=== PATIENT | female | born 1955 | race Caucasian/White ===

== ENCOUNTER 2018-05-07 13:07 | Inpatient (IN) | payer MEDICARE, OTHER ==
[~2018-05-07] VITALS: Ht 157.5 cm; Wt 69.4 kg
[2018-05-07] MEDS ORDERED: VENL150C58 PO (13:30)
[2018-05-07] MEDS ORDERED: TRAZ-182 PO (13:30)
[2018-05-07 14:04] LABS: BASOPHILS # (AUTO) 0.2 K/uL (0.0-8.0); BASOPHILS % (AUTO) 2.3 % (0.0-2.0); EOSINOPHILS # (AUTO) 0.2 K/uL (0.0-0.7); EOSINOPHILS % (AUTO) 3.2 % (0.0-7.0); HEMATOCRIT 42.8 % (31.2-41.9); HEMOGLOBIN 14.6 g/dL (10.9-14.3); LYMPHOCYTES # (AUTO) 1.4 K/uL (20.0-40.0); LYMPHOCYTES % (AUTO) 19.5 % (20.5-51.5); MEAN CORPUSCULAR HGB CONC 34 g/dL (32.3-35.6); MONOCYTES # (AUTO) 0.4 K/uL (2.0-10.0); MONOCYTES % (AUTO) 5.8 % (0.0-11.0); NEUTROPHILS # (AUTO) 4.9 K/uL (1.8-8.9); NEUTROPHILS % (AUTO) 69.2 % (38.5-71.5); PLATELET COUNT (AUTO) 177 K/uL (179-408); RED BLOOD CELL COUNT(AUTO) 4.71 MIL/uL (3.63-4.92); WHITE BLOOD COUNT (AUTO) 7.1 K/uL (3.8-11.8)
[2018-05-07 14:15] LABS: ALANINE AMINOTRANSFERASE 52 U/L (14-59); ALKALINE PHOSPHATASE 85 U/L (50-136); ASPARTATE AMINOTRANSFERASE 32 U/L (15-37); BILIRUBIN,DIRECT 0.2 mg/dL (0.0-0.2); BILIRUBIN,TOTAL 0.7 mg/dL (0.2-1.0); CARBON DIOXIDE 25 mmol/L (21-32); CHLORIDE 104 mmol/L (98-107); CREATININE 0.9 mg/dL (0.6-1.3); GLUCOSE 212 mg/dL (74-106); POTASSIUM 3.8 mmol/L (3.5-5.1); TOTAL PROTEIN, SERUM 7.7 g/dL (6.4-8.2)
[2018-05-07 14:17] LABS: ETHANOL < 3 MG/DL (0-0)
[2018-05-07 14:28] LABS: UREA NITROGEN, BLOOD 26 mg/dL (7-18)
[2018-05-07 14:29] LABS: ACETAMINOPHEN < 2.0 ug/mL (10-30)
[2018-05-07] MEDS ORDERED: MAGNESIUM HYDROXIDE 30 ML LIQUID UDC PO PRN (16:45)
[2018-05-07] MEDS ORDERED: ACETAMINOPHEN 325 MG TABLET PO PRN (16:45)
[2018-05-07] MEDS ORDERED: MAG HYDROX/AL HYDROX/SIMETH 30 ML LIQUID UDC PO PRN (16:45)
[2018-05-07 17:59] VITALS: BP 147/87
[2018-05-07 20:00] VITALS: BP 116/71
[2018-05-07] MEDS: ARIPIPRAZOLE 5 MG TABLET PO SCH (20:21)
[2018-05-07] MEDS: TRAZODONE 50 MG TABLET PO SCH (20:21)
[2018-05-08 07:30] VITALS: BP 136/76
[2018-05-08] MEDS: VENLAFAXINE XR 150 MG CAP.SR.24H PO SCH (08:18)
[2018-05-08 15:27] VITALS: BP 127/74
[2018-05-08 19:30] VITALS: BP 131/68
[2018-05-08] MEDS: ARIPIPRAZOLE 5 MG TABLET PO SCH (20:10)
[2018-05-08] MEDS: TRAZODONE 50 MG TABLET PO SCH (20:10)
[2018-05-09] MEDS: TEMAZEPAM 7.5 MG CAPSULE PO PRN ×2 (01:46→21:45)
[2018-05-09 07:30] VITALS: BP 126/52
[2018-05-09 07:38] LABS: BASOPHILS # (AUTO) 0.1 K/uL (0.0-8.0); BASOPHILS % (AUTO) 2.1 % (0.0-2.0); EOSINOPHILS # (AUTO) 0.3 K/uL (0.0-0.7); EOSINOPHILS % (AUTO) 5.8 % (0.0-7.0); HEMATOCRIT 41.6 % (31.2-41.9); LYMPHOCYTES % (AUTO) 22.8 % (20.5-51.5); MEAN CORPUSCULAR HEMOGLOBIN 29.9 uug (24.7-32.8); MEAN CORPUSCULAR HGB CONC 34 g/dL (32.3-35.6); MEAN CORPUSCULAR VOLUME 88.8 fL (75.5-95.3); MONOCYTES # (AUTO) 0.3 K/uL (2.0-10.0); MONOCYTES % (AUTO) 7.6 % (0.0-11.0); NEUTROPHILS # (AUTO) 2.8 K/uL (1.8-8.9); NEUTROPHILS % (AUTO) 61.7 % (38.5-71.5); PLATELET COUNT (AUTO) 143 K/uL (179-408); RED BLOOD CELL COUNT(AUTO) 4.68 MIL/uL (3.63-4.92); WHITE BLOOD COUNT (AUTO) 4.5 K/uL (3.8-11.8)
[2018-05-09 07:54] LABS: BILIRUBIN,TOTAL 0.9 mg/dL (0.2-1.0); CREATININE 0.8 mg/dL (0.6-1.3); MAGNESIUM 2.2 mg/dL (1.8-2.4); PHOSPHOROUS 3.7 mg/dL (2.5-4.9); POTASSIUM 3.4 mmol/L (3.5-5.1); TOTAL PROTEIN, SERUM 7.3 g/dL (6.4-8.2)
[2018-05-09 08:19] LABS: THYROID STIMULATING HORMONE 2.721 mIU/mL (0.358-3.740)
[2018-05-09] MEDS: VENLAFAXINE XR 150 MG CAP.SR.24H PO SCH (08:58)
[2018-05-09] MEDS ORDERED: POTASSIUM CHLORIDE 20 MEQ TAB.PRT.SR PO ONE (11:30)
[2018-05-09 16:58] VITALS: BP 146/63
[2018-05-09] MEDS: TRAZODONE 50 MG TABLET PO SCH (20:00)
[2018-05-09] MEDS: ARIPIPRAZOLE 5 MG TABLET PO SCH (20:00)
[2018-05-09 20:19] VITALS: BP 120/86
[2018-05-10 07:30] VITALS: BP 113/65
[2018-05-10] MEDS: VENLAFAXINE XR 150 MG CAP.SR.24H PO SCH (08:28)
[2018-05-10 16:56] VITALS: BP 140/58
[2018-05-10] MEDS: LORAZEPAM 0.5 MG TABLET PO PRN (19:50)
[2018-05-10 20:00] VITALS: BP 128/74
[2018-05-10] MEDS: ARIPIPRAZOLE 5 MG TABLET PO SCH ×2 (21:00→21:45)
[2018-05-10] MEDS: TRAZODONE 50 MG TABLET PO SCH ×2 (21:00→21:45)
[2018-05-11 07:30] VITALS: BP 138/74
[2018-05-11] MEDS: VENLAFAXINE XR 150 MG CAP.SR.24H PO SCH (08:26)
[2018-05-11 15:30] VITALS: BP 121/58
[2018-05-11 20:00] VITALS: BP 119/62
[2018-05-11] MEDS: LORAZEPAM 0.5 MG TABLET PO PRN (20:08)
[2018-05-11] MEDS: ARIPIPRAZOLE 5 MG TABLET PO SCH (21:04)
[2018-05-11] MEDS: TRAZODONE 50 MG TABLET PO SCH (21:04)
[2018-05-12 07:30] VITALS: BP 115/61
[2018-05-12] MEDS: VENLAFAXINE XR 150 MG CAP.SR.24H PO SCH (08:45)
[2018-05-12 16:18] VITALS: BP 120/73
[2018-05-12 16:37] LABS: *BILIRUBIN,URIN NEGATIVE (NEGATIVE); *BLOOD, URINE 1+ (NEGATIVE); *CLARITY,URINE CLOUDY (CLEAR); *COLOR,URINE YELLOW (YELLOW); *KETONES,URINE TRACE (NEGATIVE); *PROTEIN,URINE 1+ (NEGATIVE); LEUKOCYTE ESTERASE ,URINE 1+ (NEGATIVE); NITRITE, URINE POSITIVE (NEGATIVE); PH,URINE 5.5 (5.0-8.0); UGLUCOSE NEGATIVE (NEGATIVE)
[2018-05-12 16:48] LABS: WBC,URINE 80-100 /HPF (0-3)
[2018-05-12 16:49] LABS: BACTERIA,URINE MANY /HPF (NONE SEEN); CALCIUM OXALATE CRYSTALS,UR FEW /HPF (NONE SEEN); MUCUS,URINE MODERATE /LPF (0-FEW); SQUAMOUS EPITHELIAL CELL,UR MODERATE /HPF (NONE SEEN)
[2018-05-12] MEDS: SULFAMETH/TRIMETH 800/160 MG TABLET PO SCH (17:32)
[2018-05-12 20:00] VITALS: BP 123/74
[2018-05-12] MEDS: ARIPIPRAZOLE 5 MG TABLET PO SCH (20:20)
[2018-05-12] MEDS: TRAZODONE 50 MG TABLET PO SCH (20:20)
[2018-05-13 07:12] LABS: BASOPHILS # (AUTO) 0.2 K/uL (0.0-8.0); EOSINOPHILS # (AUTO) 0.3 K/uL (0.0-0.7); EOSINOPHILS % (AUTO) 6.1 % (0.0-7.0); HEMATOCRIT 42.7 % (31.2-41.9); HEMOGLOBIN 14.8 g/dL (10.9-14.3); LYMPHOCYTES # (AUTO) 1.2 K/uL (20.0-40.0); LYMPHOCYTES % (AUTO) 27.2 % (20.5-51.5); MEAN CORPUSCULAR HGB CONC 35 g/dL (32.3-35.6); MEAN CORPUSCULAR VOLUME 89.3 fL (75.5-95.3); MONOCYTES # (AUTO) 0.4 K/uL (2.0-10.0); MONOCYTES % (AUTO) 9.2 % (0.0-11.0); NEUTROPHILS # (AUTO) 2.5 K/uL (1.8-8.9); NEUTROPHILS % (AUTO) 53.5 % (38.5-71.5); PLATELET COUNT (AUTO) 134 K/uL (179-408); RED BLOOD CELL COUNT(AUTO) 4.78 MIL/uL (3.63-4.92); WHITE BLOOD COUNT (AUTO) 4.6 K/uL (3.8-11.8)
[2018-05-13 07:30] VITALS: BP 111/50
[2018-05-13 07:30] LABS: BILIRUBIN,TOTAL 0.7 mg/dL (0.2-1.0); CREATININE 0.9 mg/dL (0.6-1.3); MAGNESIUM 2.1 mg/dL (1.8-2.4); POTASSIUM 3.9 mmol/L (3.5-5.1); TOTAL PROTEIN, SERUM 7.7 g/dL (6.4-8.2)
[2018-05-13] MEDS: SULFAMETH/TRIMETH 800/160 MG TABLET PO SCH ×2 (08:27→20:19)
[2018-05-13] MEDS: VENLAFAXINE XR 150 MG CAP.SR.24H PO SCH (08:27)
[2018-05-13] MEDS: DOCUSATE SODIUM 100 MG CAPSULE PO SCH ×2 (11:47→20:19)
[2018-05-13] MEDS: LORAZEPAM 0.5 MG TABLET PO PRN (12:18)
[2018-05-13 15:26] VITALS: BP 132/68
[2018-05-13 20:00] VITALS: BP 134/60
[2018-05-13] MEDS: TRAZODONE 50 MG TABLET PO SCH (20:19)
[2018-05-13] MEDS: ARIPIPRAZOLE 5 MG TABLET PO SCH (20:20)
[2018-05-14] MEDS: SULFAMETH/TRIMETH 800/160 MG TABLET PO SCH ×2 (08:16→20:38)
[2018-05-14] MEDS: VENLAFAXINE XR 150 MG CAP.SR.24H PO SCH (08:16)
[2018-05-14] MEDS: DOCUSATE SODIUM 100 MG CAPSULE PO SCH ×2 (08:16→20:37)
[2018-05-14 08:30] VITALS: BP 127/71
[2018-05-14] MEDS: LORAZEPAM 0.5 MG TABLET PO PRN (16:24)
[2018-05-14 17:00] VITALS: BP 120/65
[2018-05-14 19:30] VITALS: BP 114/41
[2018-05-14] MEDS: TRAZODONE 50 MG TABLET PO SCH (20:38)
[2018-05-14] MEDS: ARIPIPRAZOLE 5 MG TABLET PO SCH (20:55)
[2018-05-15 07:30] VITALS: BP 94/51
[2018-05-15] MEDS: VENLAFAXINE XR 150 MG CAP.SR.24H PO SCH (08:35)
[2018-05-15] MEDS: SULFAMETH/TRIMETH 800/160 MG TABLET PO SCH ×2 (08:36→20:05)
[2018-05-15] MEDS: LORAZEPAM 0.5 MG TABLET PO PRN ×2 (08:36→16:35)
[2018-05-15] MEDS: DOCUSATE SODIUM 100 MG CAPSULE PO SCH ×2 (08:36→20:05)
[2018-05-15 17:21] VITALS: BP 121/60
[2018-05-15 19:52] VITALS: BP 142/79
[2018-05-15] MEDS: TRAZODONE 50 MG TABLET PO SCH (20:05)
[2018-05-15] MEDS: ARIPIPRAZOLE 5 MG TABLET PO SCH (20:05)
[2018-05-16 07:30] VITALS: BP 92/48
[2018-05-16] MEDS: VENLAFAXINE XR 150 MG CAP.SR.24H PO SCH (09:21)
[2018-05-16] MEDS: DOCUSATE SODIUM 100 MG CAPSULE PO SCH (09:21)
[2018-05-16] MEDS: SULFAMETH/TRIMETH 800/160 MG TABLET PO SCH (09:21)
== END 2018-05-16 13:30 | DRG 885 ==
LOC: ER 13:15 → GPS 16:17
PROVIDERS: ADMIT Psychiatry & Neurology Psychiatry; ATTEND Nurse Practitioner Acute Care
DX: F32.3 Major depressive disorder, single episode, severe with psychotic features (principal); N39.0 Urinary tract infection, site not specified; E44.1 Mild protein-calorie malnutrition; D69.6 Thrombocytopenia, unspecified; E88.09 Other disorders of plasma-protein metabolism, not elsewhere classified; Z87.891 Personal history of nicotine dependence; E87.6 Hypokalemia; F10.11 Alcohol abuse, in remission; G31.84 Mild cognitive impairment of uncertain or unknown etiology; R73.9 Hyperglycemia, unspecified; B96.89 Other specified bacterial agents as the cause of diseases classified elsewhere; Z16.11 Resistance to penicillins; Z68.28 Body mass index [BMI] 28.0-28.9, adult; R79.89 Other specified abnormal findings of blood chemistry; R74.0 Nonspecific elevation of levels of transaminase and lactic acid dehydrogenase [LDH]; F41.9 Anxiety disorder, unspecified
CPT/HCPCS: 36415; 83735; 84100; 84443; 85025; 87077; 87086; A4663; G0480; G0480-TC

== ENCOUNTER 2018-09-24 13:13 | Inpatient (IN) | payer MEDICARE, MEDICAID ==
[~2018-09-24] VITALS: Ht 165.1 cm; Wt 57.6 kg
[2018-09-24] MEDS ORDERED: CRAN3875 PO (14:03)
[2018-09-24] MEDS ORDERED: TRAZ-182 PO (14:03)
[2018-09-24] MEDS ORDERED: ACET325T53 PO (14:03)
[2018-09-24] MEDS ORDERED: LORA-259 PO (14:03)
[2018-09-24] MEDS ORDERED: DOCU-141 PO (14:03)
[2018-09-24] MEDS ORDERED: MAG355OR18 PO (14:03)
[2018-09-24] MEDS ORDERED: ARIP5TAB10 PO (14:03)
[2018-09-24] MEDS ORDERED: VENL150C2 PO (14:03)
[2018-09-24 14:14] LABS: BILIRUBIN,DIRECT 0.3 mg/dL (0.0-0.2); BILIRUBIN,TOTAL 0.8 mg/dL (0.2-1.0); CREATININE 0.7 mg/dL (0.6-1.3); POTASSIUM 3.6 mmol/L (3.5-5.1); TOTAL PROTEIN, SERUM 7.6 g/dL (6.4-8.2)
[2018-09-24 14:15] LABS: MONOCYTES # (AUTO) 0.4 K/uL (2.0-10.0); RED BLOOD CELL COUNT(AUTO) 4.42 MIL/uL (3.63-4.92)
[2018-09-24 14:24] LABS: BASOPHILS # (AUTO) 0.1 K/uL (0.0-8.0); BASOPHILS % (AUTO) 2.1 % (0.0-2.0); EOSINOPHILS # (AUTO) 0.2 K/uL (0.0-0.7); HEMOGLOBIN 13.5 g/dL (10.9-14.3); LYMPHOCYTES # (AUTO) 0.9 K/uL (20.0-40.0); LYMPHOCYTES % (AUTO) 18.9 % (20.5-51.5); MEAN CORPUSCULAR HEMOGLOBIN 30.6 uug (24.7-32.8); MEAN CORPUSCULAR HGB CONC 35 g/dL (32.3-35.6); MEAN CORPUSCULAR VOLUME 88.2 fL (75.5-95.3); MONOCYTES % (AUTO) 8.9 % (0.0-11.0); NEUTROPHILS # (AUTO) 3.4 K/uL (1.8-8.9); NEUTROPHILS % (AUTO) 67.1 % (38.5-71.5); PLATELET COUNT (AUTO) 167 K/uL (179-408)
[2018-09-24] MEDS ORDERED: MAGNESIUM HYDROXIDE 30 ML LIQUID UDC PO PRN (19:00)
[2018-09-24] MEDS ORDERED: MAG HYDROX/AL HYDROX/SIMETH 30 ML LIQUID UDC PO PRN (19:00)
[2018-09-24] MEDS ORDERED: ACETAMINOPHEN 325 MG TABLET PO PRN (19:00)
[2018-09-24] MEDS ORDERED: LORAZEPAM 0.5 MG TABLET PO PRN (19:00)
[2018-09-24] MEDS ORDERED: TEMAZEPAM 7.5 MG CAPSULE PO PRN (19:00)
[2018-09-24 21:29] VITALS: BP 113/58
[2018-09-25 07:30] VITALS: BP 117/49
[2018-09-25 16:00] VITALS: BP 120/63
[2018-09-25 20:00] VITALS: BP 111/69
[2018-09-25] MEDS: ARIPIPRAZOLE 5 MG TABLET PO SCH (20:36)
[2018-09-25] MEDS: TRAZODONE 50 MG TABLET PO SCH (20:37)
[2018-09-26 07:30] VITALS: BP 100/59
[2018-09-26] MEDS: VENLAFAXINE XR 150 MG CAP.SR.24H PO SCH (09:00)
[2018-09-26 16:06] VITALS: BP 111/53
[2018-09-26] MEDS: MUPIROCIN 2% OINT 22 GM TUBE NS SCH (21:00)
[2018-09-26] MEDS: ARIPIPRAZOLE 5 MG TABLET PO SCH (21:00)
[2018-09-26] MEDS: TRAZODONE 50 MG TABLET PO SCH (21:00)
[2018-09-27 07:30] VITALS: BP 116/37
[2018-09-27] MEDS: VENLAFAXINE XR 150 MG CAP.SR.24H PO SCH (08:46)
[2018-09-27] MEDS: MUPIROCIN 2% OINT 22 GM TUBE NS SCH ×2 (08:50→21:34)
[2018-09-27 16:07] VITALS: BP 144/87
[2018-09-27] MEDS: ARIPIPRAZOLE 5 MG TABLET PO SCH (17:30)
[2018-09-27 20:46] VITALS: BP 132/77
[2018-09-27] MEDS: TRAZODONE 50 MG TABLET PO SCH (21:33)
[2018-09-28] MEDS: MUPIROCIN 2% OINT 22 GM TUBE NS SCH ×2 (09:25→20:25)
[2018-09-28] MEDS: VENLAFAXINE XR 150 MG CAP.SR.24H PO SCH (09:38)
[2018-09-28] MEDS: ARIPIPRAZOLE 5 MG TABLET PO SCH ×2 (09:38→16:25)
[2018-09-28 10:57] VITALS: BP 101/39
[2018-09-28 15:00] VITALS: BP 100/42
[2018-09-28] MEDS: TRAZODONE 50 MG TABLET PO SCH (20:25)
[2018-09-29 08:07] VITALS: BP 114/45
[2018-09-29] MEDS: VENLAFAXINE XR 150 MG CAP.SR.24H PO SCH (09:00)
[2018-09-29] MEDS: ARIPIPRAZOLE 5 MG TABLET PO SCH ×2 (09:00→17:00)
[2018-09-29] MEDS: MUPIROCIN 2% OINT 22 GM TUBE NS SCH ×2 (09:20→21:15)
[2018-09-29 16:04] VITALS: BP 99/59
[2018-09-29 20:00] VITALS: BP 113/62
[2018-09-29] MEDS: TRAZODONE 50 MG TABLET PO SCH (21:15)
[2018-09-30 07:30] VITALS: BP 119/72
[2018-09-30] MEDS: ARIPIPRAZOLE 5 MG TABLET PO SCH ×2 (09:00→17:00)
[2018-09-30] MEDS: VENLAFAXINE XR 150 MG CAP.SR.24H PO SCH (09:00)
[2018-09-30] MEDS: MUPIROCIN 2% OINT 22 GM TUBE NS SCH ×2 (13:17→21:14)
[2018-09-30 15:54] VITALS: BP 130/82
[2018-09-30] MEDS: TRAZODONE 50 MG TABLET PO SCH ×2 (21:00→21:18)
[2018-10-01 07:54] VITALS: BP 118/78
[2018-10-01] MEDS: VENLAFAXINE XR 150 MG CAP.SR.24H PO SCH (09:00)
[2018-10-01] MEDS: ARIPIPRAZOLE 5 MG TABLET PO SCH ×2 (09:00→17:00)
[2018-10-01] MEDS: MUPIROCIN 2% OINT 22 GM TUBE NS SCH ×2 (09:12→20:18)
[2018-10-01 17:00] VITALS: BP 133/68
[2018-10-01 20:17] VITALS: BP 138/62
[2018-10-01] MEDS: TRAZODONE 50 MG TABLET PO SCH (20:19)
[2018-10-01] MEDS: Z GUARD REMEDY PASTE 57 GM TUBE TOP SCH (21:00)
[2018-10-02 07:30] VITALS: BP 127/75
[2018-10-02] MEDS: Z GUARD REMEDY PASTE 57 GM TUBE TOP SCH (09:00)
[2018-10-02] MEDS: VENLAFAXINE XR 150 MG CAP.SR.24H PO SCH (09:00)
[2018-10-02] MEDS: MUPIROCIN 2% OINT 22 GM TUBE NS SCH (09:00)
[2018-10-02] MEDS: ARIPIPRAZOLE 5 MG TABLET PO SCH ×2 (09:00→17:00)
[2018-10-02 14:26] LABS: BASOPHILS # (AUTO) 0.1 K/uL (0.0-8.0); BASOPHILS % (AUTO) 0.9 % (0.0-2.0); EOSINOPHILS % (AUTO) 0.6 % (0.0-7.0); HEMATOCRIT 42.8 % (31.2-41.9); HEMOGLOBIN 14.8 g/dL (10.9-14.3); LYMPHOCYTES # (AUTO) 1.2 K/uL (20.0-40.0); LYMPHOCYTES % (AUTO) 15.2 % (20.5-51.5); MEAN CORPUSCULAR HEMOGLOBIN 30.6 uug (24.7-32.8); MEAN CORPUSCULAR HGB CONC 35 g/dL (32.3-35.6); MEAN CORPUSCULAR VOLUME 88.7 fL (75.5-95.3); MONOCYTES # (AUTO) 0.5 K/uL (2.0-10.0); MONOCYTES % (AUTO) 6.3 % (0.0-11.0); NEUTROPHILS # (AUTO) 6.1 K/uL (1.8-8.9); PLATELET COUNT (AUTO) 191 K/uL (179-408); RED BLOOD CELL COUNT(AUTO) 4.83 MIL/uL (3.63-4.92); WHITE BLOOD COUNT (AUTO) 7.9 K/uL (3.8-11.8)
[2018-10-02 14:34] LABS: CREATININE 1.1 mg/dL (0.6-1.3); POTASSIUM 4.3 mmol/L (3.5-5.1)
[2018-10-02 16:00] VITALS: BP 138/71
[2018-10-02] MEDS ORDERED: MUPI22OI2 (20:19)
[2018-10-02] MEDS ORDERED: ARIP5TAB10 PO (20:19)
[2018-10-02] MEDS ORDERED: TRAZ-182 PO (20:19)
[2018-10-02] MEDS ORDERED: VENL150C2 PO (20:19)
[2018-10-02] MEDS ORDERED: ZINC113P2 TP (20:19)
[2018-10-02] MEDS ORDERED: LORA0.5T PO (20:19)
[2018-10-02] MEDS ORDERED: TEMA7.5C PO (20:19)
== END 2018-10-02 20:10 | disposition short-term general hospital (02) | DRG 885 ==
LOC: ER 13:13 → GPS 16:56
PROVIDERS: ADMIT Psychiatry & Neurology Psychiatry; ATTEND Internal Medicine
DX: F29 Unspecified psychosis not due to a substance or known physiological condition (principal); J98.11 Atelectasis; E44.1 Mild protein-calorie malnutrition; R47.01 Aphasia; Z91.14 Patient's other noncompliance with medication regimen; Z91.19 Patient's noncompliance with other medical treatment and regimen; Z22.322 Carrier or suspected carrier of Methicillin resistant Staphylococcus aureus; Z87.891 Personal history of nicotine dependence; F41.9 Anxiety disorder, unspecified; Z68.21 Body mass index [BMI] 21.0-21.9, adult; D69.6 Thrombocytopenia, unspecified; F03.90 Unspecified dementia, unspecified severity, without behavioral disturbance, psychotic disturbance, mood disturbance, and anxiety; Z87.440 Personal history of urinary (tract) infections; F32.9 Major depressive disorder, single episode, unspecified
CPT/HCPCS: 36415; 71045; 85025; 93005; A4663

== ENCOUNTER 2018-10-02 19:36 | Inpatient (IN) | payer MEDICARE, MEDICAID ==
[~2018-10-02] VITALS: Ht 165.1 cm; Wt 61.2 kg
[~2018-10-02 19:36] MED LIST: ACET325T53 PO; CRAN3875 PO; DOCU-141 PO; MAG355OR18 PO
[2018-10-02] MEDS ORDERED: IV D5 1/2 NS 1000 ML 1,000 ML IV PRN (20:00)
[2018-10-02] MEDS ORDERED: TRAZ-182 PO (20:19)
[2018-10-02] MEDS ORDERED: ZINC113P2 TP (20:19)
[2018-10-02] MEDS ORDERED: VENL150C2 PO (20:19)
[2018-10-02] MEDS ORDERED: ARIP5TAB10 PO (20:19)
[2018-10-02] MEDS ORDERED: MUPI22OI2 (20:19)
[2018-10-02] MEDS ORDERED: LORA0.5T PO (20:19)
[2018-10-02] MEDS ORDERED: TEMA7.5C PO (20:19)
[2018-10-02 20:27] VITALS: BP 118/76
[2018-10-02 23:42] VITALS: BP 121/70
[2018-10-03 00:47] LABS: *BLOOD, URINE NEGATIVE (NEGATIVE); *CLARITY,URINE SLIGHTLY CLOUDY (CLEAR); *COLOR,URINE DARK YELLOW (YELLOW); *KETONES,URINE 2+ (NEGATIVE); LEUKOCYTE ESTERASE ,URINE NEGATIVE (NEGATIVE); NITRITE, URINE NEGATIVE (NEGATIVE); PH,URINE 5.5 (5.0-8.0); UGLUCOSE NEGATIVE (NEGATIVE)
[2018-10-03 00:49] LABS: *BILIRUBIN,URIN 2+ (NEGATIVE)
[2018-10-03 01:18] LABS: BACTERIA,URINE NONE SEEN /HPF (NONE SEEN); RBC,URINE 0-3 /HPF (0-3); SQUAMOUS EPITHELIAL CELL,UR MODERATE /HPF (NONE SEEN); TRANSITIONAL EPI CELLS,URINE FEW /LPF (NONE SEEN); URINE AMORPHOUS URATE MODERATE /HPF; WBC,URINE 0-3 /HPF (0-3)
[2018-10-03 01:19] LABS: MUCUS,URINE MANY /LPF (0-FEW)
[2018-10-03] MEDS: LORAZEPAM 0.5 MG TABLET PO PRN ×2 (04:25→21:03)
[2018-10-03 04:39] VITALS: BP 120/64
[2018-10-03 07:06] LABS: BASOPHILS # (AUTO) 0.1 K/uL (0.0-8.0); BASOPHILS % (AUTO) 0.8 % (0.0-2.0); EOSINOPHILS # (AUTO) 0.1 K/uL (0.0-0.7); EOSINOPHILS % (AUTO) 1.2 % (0.0-7.0); HEMOGLOBIN 13.5 g/dL (10.9-14.3); LYMPHOCYTES # (AUTO) 1.3 K/uL (20.0-40.0); LYMPHOCYTES % (AUTO) 16.5 % (20.5-51.5); MEAN CORPUSCULAR HEMOGLOBIN 30.1 uug (24.7-32.8); MEAN CORPUSCULAR HGB CONC 35 g/dL (32.3-35.6); MEAN CORPUSCULAR VOLUME 86.6 fL (75.5-95.3); MONOCYTES # (AUTO) 0.7 K/uL (2.0-10.0); MONOCYTES % (AUTO) 8.4 % (0.0-11.0); NEUTROPHILS # (AUTO) 5.9 K/uL (1.8-8.9); NEUTROPHILS % (AUTO) 73.1 % (38.5-71.5); PLATELET COUNT (AUTO) 162 K/uL (179-408); WHITE BLOOD COUNT (AUTO) 8.1 K/uL (3.8-11.8)
[2018-10-03 07:32] LABS: THYROID STIMULATING HORMONE 2.328 mIU/mL (0.358-3.740)
[2018-10-03 07:39] LABS: BILIRUBIN,TOTAL 1.5 mg/dL (0.2-1.0); CREATININE 0.8 mg/dL (0.6-1.3); PHOSPHOROUS 2.8 mg/dL (2.5-4.9); POTASSIUM 3.4 mmol/L (3.5-5.1); TOTAL PROTEIN, SERUM 8.3 g/dL (6.4-8.2)
[2018-10-03] MEDS ORDERED: MAG HYDROX/AL HYDROX/SIMETH 30 ML LIQUID UDC PO PRN (07:45)
[2018-10-03] MEDS ORDERED: ARIPIPRAZOLE 5 MG TABLET PO PRN (07:45)
[2018-10-03] MEDS ORDERED: MORPHINE SULFATE 2 MG/1 ML DISP.SYRIN IV PRN (07:45)
[2018-10-03] MEDS ORDERED: TEMAZEPAM 7.5 MG CAPSULE PO PRN (07:45)
[2018-10-03] MEDS ORDERED: ONDANSETRON 4 MG/2 ML VIAL IV PRN (07:45)
[2018-10-03] MEDS ORDERED: CLONIDINE HCL 0.1 MG TABLET PO PRN (07:45)
[2018-10-03] MEDS ORDERED: ZINC OXIDE OINT 30 GM TUBE TOP PRN (07:45)
[2018-10-03] MEDS: IV NS 1000 ML 1,000 ML IV PRN ×2 (07:58→23:32)
[2018-10-03] MEDS ORDERED: Z GUARD REMEDY PASTE 57 GM TUBE TOP PRN (08:00)
[2018-10-03] MEDS ORDERED: MORPHINE SULFATE 4 MG/1 ML DISP.SYRIN IV PRN (08:00)
[2018-10-03] MEDS: DOCUSATE SODIUM 100 MG CAPSULE PO SCH ×2 (08:46→20:07)
[2018-10-03] MEDS: VENLAFAXINE XR 150 MG CAP.SR.24H PO SCH (08:46)
[2018-10-03] MEDS ORDERED: MUPIROCIN 2% OINT 22 GM TUBE NS SCH (09:00)
[2018-10-03] MEDS ORDERED: Medication Not On Formulary EA (Cran/Vitc/Mannose/Inulin/Brom (Uti-Stat Liquid) 3,875 MG PO SCH (09:00)
[2018-10-03] MEDS ORDERED: POTASSIUM CHLORIDE 20 MEQ TAB.PRT.SR PO ONE (10:00)
[2018-10-03 11:25] VITALS: BP 111/61
[2018-10-03] MEDS: ARIPIPRAZOLE 5 MG TABLET PO SCH ×2 (12:52→17:07)
[2018-10-03 15:22] VITALS: BP 102/46
[2018-10-03 19:40] VITALS: BP 121/60
[2018-10-03] MEDS: TRAZODONE 50 MG TABLET PO SCH (20:10)
[2018-10-04 05:36] VITALS: BP 125/63
[2018-10-04 06:28] LABS: BASOPHILS # (AUTO) 0.1 K/uL (0.0-8.0); BASOPHILS % (AUTO) 0.9 % (0.0-2.0); EOSINOPHILS # (AUTO) 0.2 K/uL (0.0-0.7); EOSINOPHILS % (AUTO) 3.6 % (0.0-7.0); HEMATOCRIT 32.4 % (31.2-41.9); HEMOGLOBIN 11.3 g/dL (10.9-14.3); LYMPHOCYTES # (AUTO) 1.7 K/uL (20.0-40.0); LYMPHOCYTES % (AUTO) 29.7 % (20.5-51.5); MEAN CORPUSCULAR HEMOGLOBIN 30.3 uug (24.7-32.8); MEAN CORPUSCULAR HGB CONC 35 g/dL (32.3-35.6); MEAN CORPUSCULAR VOLUME 87.1 fL (75.5-95.3); MONOCYTES # (AUTO) 0.4 K/uL (2.0-10.0); MONOCYTES % (AUTO) 8.1 % (0.0-11.0); NEUTROPHILS # (AUTO) 3.2 K/uL (1.8-8.9); NEUTROPHILS % (AUTO) 57.7 % (38.5-71.5); PLATELET COUNT (AUTO) 112 K/uL (179-408); RED BLOOD CELL COUNT(AUTO) 3.72 MIL/uL (3.63-4.92); WHITE BLOOD COUNT (AUTO) 5.6 K/uL (3.8-11.8)
[2018-10-04 06:41] LABS: CREATININE 0.6 mg/dL (0.6-1.3); POTASSIUM 3.4 mmol/L (3.5-5.1)
[2018-10-04] MEDS: VENLAFAXINE XR 150 MG CAP.SR.24H PO SCH (09:00)
[2018-10-04] MEDS: DOCUSATE SODIUM 100 MG CAPSULE PO SCH ×2 (09:00→21:00)
[2018-10-04] MEDS: ARIPIPRAZOLE 5 MG TABLET PO SCH ×2 (09:00→17:00)
[2018-10-04 10:38] VITALS: BP 104/46
[2018-10-04] MEDS: IV NS 1000 ML 1,000 ML IV PRN (12:08)
[2018-10-04] MEDS ORDERED: POTASSIUM CHLORIDE 20 MEQ TAB.PRT.SR PO ONE (12:45)
[2018-10-04 14:49] VITALS: BP 110/52
[2018-10-04 20:00] VITALS: BP 106/50
[2018-10-04] MEDS: TRAZODONE 50 MG TABLET PO SCH (21:00)
[2018-10-05] MEDS: IV NS 1000 ML 1,000 ML IV PRN ×2 (01:25→16:12)
[2018-10-05] MEDS: VENLAFAXINE XR 150 MG CAP.SR.24H PO SCH ×2 (08:44→11:01)
[2018-10-05] MEDS: ARIPIPRAZOLE 5 MG TABLET PO SCH ×2 (08:44→11:00)
[2018-10-05] MEDS: DOCUSATE SODIUM 100 MG CAPSULE PO SCH ×3 (08:44→20:07)
[2018-10-05 10:27] VITALS: BP 102/61
[2018-10-05] MEDS ORDERED: OLANZAPINE 10 MG VIAL IM PRN (14:45)
[2018-10-05 15:24] VITALS: BP 84/44
[2018-10-05] MEDS: OLANZAPINE 2.5 MG TABLET PO SCH (17:00)
[2018-10-05 17:22] VITALS: BP 119/49
[2018-10-05 20:00] VITALS: BP 110/54
[2018-10-05] MEDS: TRAZODONE 50 MG TABLET PO SCH (20:07)
[2018-10-06] MEDS ORDERED: Z GUARD REMEDY PASTE 57 GM TUBE TOP PRN (05:45)
[2018-10-06] MEDS: IV NS 1000 ML 1,000 ML IV PRN (05:45)
[2018-10-06 05:52] VITALS: BP 98/51
[2018-10-06 08:00] VITALS: BP 119/54
[2018-10-06] MEDS: VENLAFAXINE XR 150 MG CAP.SR.24H PO SCH (09:24)
[2018-10-06] MEDS: DOCUSATE SODIUM 100 MG CAPSULE PO SCH ×3 (09:24→21:18)
[2018-10-06] MEDS: OLANZAPINE 2.5 MG TABLET PO SCH ×2 (09:24→17:10)
[2018-10-06 12:00] VITALS: BP 100/54
[2018-10-06 16:00] VITALS: BP 110/60
[2018-10-06 20:05] VITALS: BP 117/58
[2018-10-06] MEDS: TRAZODONE 50 MG TABLET PO SCH ×3 (21:00→23:01)
[2018-10-06] MEDS: LORAZEPAM 0.5 MG TABLET PO PRN (23:01)
[2018-10-07] MEDS: IV NS 1000 ML 1,000 ML IV PRN ×2 (03:37→17:03)
[2018-10-07] MEDS: DOCUSATE SODIUM 100 MG CAPSULE PO SCH ×2 (09:00→20:43)
[2018-10-07] MEDS: OLANZAPINE 2.5 MG TABLET PO SCH ×2 (09:44→17:14)
[2018-10-07] MEDS: VENLAFAXINE XR 150 MG CAP.SR.24H PO SCH (09:45)
[2018-10-07 15:34] VITALS: BP 111/69
[2018-10-07] MEDS: ACETAMINOPHEN 325 MG TABLET PO PRN (19:42)
[2018-10-07] MEDS: TRAZODONE 50 MG TABLET PO SCH (20:44)
[2018-10-07 20:45] VITALS: BP 103/58
[2018-10-08 04:13] VITALS: BP 90/53
[2018-10-08] MEDS: ACETAMINOPHEN 325 MG TABLET PO PRN ×2 (05:44→16:13)
[2018-10-08] MEDS: IV NS 1000 ML 1,000 ML IV PRN ×2 (06:30→23:36)
[2018-10-08 07:23] LABS: CREATININE 0.8 mg/dL (0.6-1.3); POTASSIUM 3.5 mmol/L (3.5-5.1)
[2018-10-08 08:30] VITALS: BP 110/74
[2018-10-08] MEDS: OLANZAPINE 2.5 MG TABLET PO SCH ×2 (08:33→16:30)
[2018-10-08] MEDS: DOCUSATE SODIUM 100 MG CAPSULE PO SCH ×2 (08:33→20:26)
[2018-10-08] MEDS: VENLAFAXINE XR 150 MG CAP.SR.24H PO SCH (08:33)
[2018-10-08 08:46] LABS: LYMPHOCYTES # (AUTO) 1.1 K/uL (20.0-40.0)
[2018-10-08 09:01] LABS: BASOPHILS # (AUTO) 0.1 K/uL (0.0-8.0); BASOPHILS % (AUTO) 0.4 % (0.0-2.0); HEMATOCRIT 40.4 % (31.2-41.9); HEMOGLOBIN 14.2 g/dL (10.9-14.3); LYMPHOCYTES % (AUTO) 8.1 % (20.5-51.5); MEAN CORPUSCULAR HEMOGLOBIN 30.9 uug (24.7-32.8); MEAN CORPUSCULAR HGB CONC 35 g/dL (32.3-35.6); MEAN CORPUSCULAR VOLUME 88.3 fL (75.5-95.3); MONOCYTES # (AUTO) 1.1 K/uL (2.0-10.0); MONOCYTES % (AUTO) 7.9 % (0.0-11.0); NEUTROPHILS # (AUTO) 11.6 K/uL (1.8-8.9); NEUTROPHILS % (AUTO) 83.6 % (38.5-71.5); RED BLOOD CELL COUNT(AUTO) 4.58 MIL/uL (3.63-4.92)
[2018-10-08 09:03] LABS: PLATELET COUNT (AUTO) 145 K/uL (179-408); WHITE BLOOD COUNT (AUTO) 13.8 K/uL (3.8-11.8)
[2018-10-08 12:28] VITALS: BP 119/72
[2018-10-08 16:07] VITALS: BP 126/79
[2018-10-08 20:13] VITALS: BP 113/69
[2018-10-08] MEDS: TRAZODONE 50 MG TABLET PO SCH (20:26)
[2018-10-09 06:00] VITALS: BP 123/68
[2018-10-09 06:47] LABS: BASOPHILS % (AUTO) 0.4 % (0.0-2.0); EOSINOPHILS % (AUTO) 0.1 % (0.0-7.0); LYMPHOCYTES # (AUTO) 1.3 K/uL (20.0-40.0); MEAN CORPUSCULAR HGB CONC 35 g/dL (32.3-35.6); MONOCYTES # (AUTO) 0.9 K/uL (2.0-10.0)
[2018-10-09 06:52] LABS: CREATININE 0.8 mg/dL (0.6-1.3); POTASSIUM 3.6 mmol/L (3.5-5.1)
[2018-10-09 06:59] LABS: LYMPHOCYTES % (AUTO) 12.3 % (20.5-51.5); MEAN CORPUSCULAR HEMOGLOBIN 30.8 uug (24.7-32.8); MEAN CORPUSCULAR VOLUME 88.4 fL (75.5-95.3); MONOCYTES % (AUTO) 8.5 % (0.0-11.0); NEUTROPHILS # (AUTO) 8.5 K/uL (1.8-8.9); NEUTROPHILS % (AUTO) 78.7 % (38.5-71.5); PLATELET COUNT (AUTO) 141 K/uL (179-408); RED BLOOD CELL COUNT(AUTO) 4.06 MIL/uL (3.63-4.92); WHITE BLOOD COUNT (AUTO) 10.8 K/uL (3.8-11.8)
[2018-10-09 07:02] LABS: HEMATOCRIT 35.9 % (31.2-41.9); HEMOGLOBIN 12.5 g/dL (10.9-14.3)
[2018-10-09 07:58] VITALS: BP 111/59
[2018-10-09] MEDS: VENLAFAXINE XR 150 MG CAP.SR.24H PO SCH (08:29)
[2018-10-09] MEDS: OLANZAPINE 2.5 MG TABLET PO SCH ×2 (08:29→17:00)
[2018-10-09] MEDS: DOCUSATE SODIUM 100 MG CAPSULE PO SCH ×2 (08:29→21:00)
[2018-10-09 11:56] VITALS: BP 101/56
[2018-10-09] MEDS: IV NS 1000 ML 1,000 ML IV PRN (13:05)
[2018-10-09 13:48] LABS: *BILIRUBIN,URIN NEGATIVE (NEGATIVE); *BLOOD, URINE 1+ (NEGATIVE); *CLARITY,URINE CLOUDY (CLEAR); *COLOR,URINE YELLOW (YELLOW); *KETONES,URINE TRACE (NEGATIVE); *UROBILINOGEN,URINE 0.2 E.U./dl (NORMAL); LEUKOCYTE ESTERASE ,URINE 2+ (NEGATIVE); NITRITE, URINE POSITIVE (NEGATIVE); UGLUCOSE TRACE (NEGATIVE)
[2018-10-09 13:58] LABS: BACTERIA,URINE MANY /HPF (NONE SEEN); SQUAMOUS EPITHELIAL CELL,UR MODERATE /HPF (NONE SEEN); WBC,URINE TNTC /HPF (0-3)
[2018-10-09 15:51] VITALS: BP 144/72
[2018-10-09] MEDS: TRAZODONE 50 MG TABLET PO SCH (21:00)
[2018-10-09] MEDS ORDERED: PIPERACILLIN/TAZOBACTAM/D5W 3.375 G in PREMIXED 1 EACH IV SCH (22:00)
[2018-10-09] MEDS ORDERED: PIPERACILLIN/TAZOBACTAM/D5W 3.375 G in PREMIXED 1 EACH IV ONE (22:30)
[2018-10-09] MEDS ORDERED: PIPERACILLIN SODIUM/TAZO 3.375 GM VIAL ONE (23:34)
[2018-10-10] MEDS: IV NS 1000 ML 1,000 ML IV PRN (02:55)
[2018-10-10 06:56] LABS: BILIRUBIN,TOTAL 0.5 mg/dL (0.2-1.0); CREATININE 0.6 mg/dL (0.6-1.3); MAGNESIUM 1.7 mg/dL (1.8-2.4); POTASSIUM 3.1 mmol/L (3.5-5.1); TOTAL PROTEIN, SERUM 5.2 g/dL (6.4-8.2)
[2018-10-10] MEDS ORDERED: POTASSIUM PHOSPHATE MM 5 MMOL in IV DEXTROSE 5% 100 ML IV SCH (08:00)
[2018-10-10] MEDS ORDERED: NEUTRA PHOS PACKET PO ONE (08:00)
[2018-10-10] MEDS: PIPERACILLIN/TAZOBACTAM/D5W 3.375 G in PREMIXED 1 EACH IV SCH ×3 (08:15→21:45)
[2018-10-10] MEDS: DOCUSATE SODIUM 100 MG CAPSULE PO SCH ×2 (08:17→21:00)
[2018-10-10] MEDS: VENLAFAXINE XR 150 MG CAP.SR.24H PO SCH (08:17)
[2018-10-10] MEDS: OLANZAPINE 2.5 MG TABLET PO SCH ×2 (08:17→16:11)
[2018-10-10] MEDS: POTASSIUM PHOSPHATE MM 7.5 MMOL in IV DEXTROSE 5% 100 ML IV SCH ×4 (09:05→17:59)
[2018-10-10 09:09] VITALS: BP 103/42
[2018-10-10 09:32] LABS: BASOPHILS % (AUTO) 0.6 % (0.0-2.0); EOSINOPHILS # (AUTO) 0.1 K/uL (0.0-0.7); EOSINOPHILS % (AUTO) 1.4 % (0.0-7.0); HEMOGLOBIN 11.3 g/dL (10.9-14.3); LYMPHOCYTES # (AUTO) 1.3 K/uL (20.0-40.0); LYMPHOCYTES % (AUTO) 20.1 % (20.5-51.5); MEAN CORPUSCULAR HEMOGLOBIN 31.3 uug (24.7-32.8); MEAN CORPUSCULAR HGB CONC 35 g/dL (32.3-35.6); MEAN CORPUSCULAR VOLUME 88.8 fL (75.5-95.3); MONOCYTES # (AUTO) 0.5 K/uL (2.0-10.0); NEUTROPHILS # (AUTO) 4.4 K/uL (1.8-8.9); NEUTROPHILS % (AUTO) 69.9 % (38.5-71.5); PLATELET COUNT (AUTO) 128 K/uL (179-408); WHITE BLOOD COUNT (AUTO) 6.3 K/uL (3.8-11.8)
[2018-10-10 16:24] VITALS: BP 97/46
[2018-10-10] MEDS: MAGNESIUM SULFATE/D5W 100 ML IV SCH ×2 (17:19→18:28)
[2018-10-10 20:00] VITALS: BP 94/52
[2018-10-10] MEDS: TRAZODONE 50 MG TABLET PO SCH (21:00)
[2018-10-11 04:37] VITALS: BP 102/59
[2018-10-11] MEDS: PIPERACILLIN/TAZOBACTAM/D5W 3.375 G in PREMIXED 1 EACH IV SCH (05:28)
[2018-10-11 06:49] LABS: BASOPHILS % (AUTO) 0.6 % (0.0-2.0); EOSINOPHILS # (AUTO) 0.1 K/uL (0.0-0.7); HEMATOCRIT 32.5 % (31.2-41.9); HEMOGLOBIN 11.3 g/dL (10.9-14.3); LYMPHOCYTES # (AUTO) 1.1 K/uL (20.0-40.0); MEAN CORPUSCULAR HEMOGLOBIN 30.4 uug (24.7-32.8); MEAN CORPUSCULAR HGB CONC 35 g/dL (32.3-35.6); MEAN CORPUSCULAR VOLUME 87.3 fL (75.5-95.3); MONOCYTES # (AUTO) 0.4 K/uL (2.0-10.0); MONOCYTES % (AUTO) 7.3 % (0.0-11.0); NEUTROPHILS # (AUTO) 3.4 K/uL (1.8-8.9); NEUTROPHILS % (AUTO) 68.1 % (38.5-71.5); PLATELET COUNT (AUTO) 150 K/uL (179-408); RED BLOOD CELL COUNT(AUTO) 3.72 MIL/uL (3.63-4.92)
[2018-10-11 06:59] LABS: CREATININE 0.7 mg/dL (0.6-1.3); MAGNESIUM 2.2 mg/dL (1.8-2.4); PHOSPHOROUS 3.3 mg/dL (2.5-4.9); POTASSIUM 3.4 mmol/L (3.5-5.1)
[2018-10-11] MEDS: DOCUSATE SODIUM 100 MG CAPSULE PO SCH ×2 (08:19→20:25)
[2018-10-11] MEDS: OLANZAPINE 2.5 MG TABLET PO SCH ×3 (08:19→16:52)
[2018-10-11] MEDS: VENLAFAXINE XR 150 MG CAP.SR.24H PO SCH (08:19)
[2018-10-11] MEDS: IV NS 1000 ML 1,000 ML IV PRN (11:46)
[2018-10-11 12:14] VITALS: BP 97/49
[2018-10-11] MEDS ORDERED: POTASSIUM CHLORIDE 20 MEQ TAB.PRT.SR PO ONE (12:45)
[2018-10-11] MEDS: MEROPENEM 0.5 G in IV NORMAL SALINE 50 ML IV SCH ×2 (14:06→20:55)
[2018-10-11 16:00] VITALS: BP 101/53
[2018-10-11 20:00] VITALS: BP 101/41
[2018-10-11] MEDS: TRAZODONE 50 MG TABLET PO SCH (20:25)
[2018-10-12] MEDS: IV NS 1000 ML 1,000 ML IV PRN ×2 (02:11→16:59)
[2018-10-12] MEDS: MEROPENEM 0.5 G in IV NORMAL SALINE 50 ML IV SCH ×3 (05:24→21:04)
[2018-10-12 05:41] VITALS: BP 155/72
[2018-10-12 07:12] LABS: CREATININE 0.7 mg/dL (0.6-1.3); POTASSIUM 3.9 mmol/L (3.5-5.1)
[2018-10-12] MEDS: DOCUSATE SODIUM 100 MG CAPSULE PO SCH ×3 (08:13→20:21)
[2018-10-12] MEDS: OLANZAPINE 2.5 MG TABLET PO SCH ×3 (08:13→17:03)
[2018-10-12] MEDS: VENLAFAXINE XR 150 MG CAP.SR.24H PO SCH ×2 (08:13→08:56)
[2018-10-12] MEDS: LORAZEPAM 0.5 MG TABLET PO PRN ×3 (10:53→22:27)
[2018-10-12] MEDS: CYANOCOBALAMIN 1000 MCG/ML VIAL IM SCH (10:53)
[2018-10-12 11:30] VITALS: BP 119/65
[2018-10-12 15:23] VITALS: BP 127/60
[2018-10-12 19:00] VITALS: BP 122/77
[2018-10-12] MEDS: TRAZODONE 50 MG TABLET PO SCH (20:21)
[2018-10-12] MEDS: ACETAMINOPHEN 325 MG TABLET PO PRN (20:21)
[2018-10-13] MEDS: ACETAMINOPHEN 325 MG TABLET PO PRN (02:23)
[2018-10-13] MEDS: LORAZEPAM 0.5 MG TABLET PO PRN (02:23)
[2018-10-13 04:00] VITALS: BP 93/63
[2018-10-13] MEDS: MEROPENEM 0.5 G in IV NORMAL SALINE 50 ML IV SCH ×3 (05:20→21:08)
[2018-10-13] MEDS: IV NS 1000 ML 1,000 ML IV PRN (05:54)
[2018-10-13 06:34] LABS: BASOPHILS % (AUTO) 0.7 % (0.0-2.0); EOSINOPHILS # (AUTO) 0.1 K/uL (0.0-0.7); EOSINOPHILS % (AUTO) 1.2 % (0.0-7.0); HEMATOCRIT 27.6 % (31.2-41.9); HEMOGLOBIN 9.7 g/dL (10.9-14.3); LYMPHOCYTES # (AUTO) 0.7 K/uL (20.0-40.0); LYMPHOCYTES % (AUTO) 16.3 % (20.5-51.5); MEAN CORPUSCULAR HEMOGLOBIN 30.5 uug (24.7-32.8); MEAN CORPUSCULAR HGB CONC 35 g/dL (32.3-35.6); MEAN CORPUSCULAR VOLUME 86.5 fL (75.5-95.3); MONOCYTES # (AUTO) 0.5 K/uL (2.0-10.0); MONOCYTES % (AUTO) 10.8 % (0.0-11.0); NEUTROPHILS # (AUTO) 3.2 K/uL (1.8-8.9); PLATELET COUNT (AUTO) 168 K/uL (179-408); RED BLOOD CELL COUNT(AUTO) 3.19 MIL/uL (3.63-4.92); WHITE BLOOD COUNT (AUTO) 4.5 K/uL (3.8-11.8)
[2018-10-13 06:36] LABS: CREATININE 0.7 mg/dL (0.6-1.3); PHOSPHOROUS 2.1 mg/dL (2.5-4.9)
[2018-10-13 06:39] LABS: POTASSIUM 2.8 mmol/L (3.5-5.1)
[2018-10-13] MEDS ORDERED: NEUTRA PHOS PACKET PO ONE (08:30)
[2018-10-13] MEDS ORDERED: POTASSIUM CHLORIDE 20 MEQ TAB.PRT.SR PO SCH (09:00)
[2018-10-13] MEDS: POTASSIUM CHLORIDE 50 ML IV SCH ×4 (09:26→15:26)
[2018-10-13] MEDS: DOCUSATE SODIUM 100 MG CAPSULE PO SCH ×2 (10:05→21:00)
[2018-10-13] MEDS: OLANZAPINE 2.5 MG TABLET PO SCH ×2 (10:05→17:00)
[2018-10-13] MEDS: VENLAFAXINE XR 150 MG CAP.SR.24H PO SCH (10:05)
[2018-10-13] MEDS: CYANOCOBALAMIN 1000 MCG/ML VIAL IM SCH (10:05)
[2018-10-13 11:20] VITALS: BP 121/53
[2018-10-13 15:33] VITALS: BP 118/62
[2018-10-13 20:00] VITALS: BP 97/54
[2018-10-13] MEDS: TRAZODONE 50 MG TABLET PO SCH (21:00)
[2018-10-14] MEDS: MEROPENEM 0.5 G in IV NORMAL SALINE 50 ML IV SCH ×2 (05:02→14:13)
[2018-10-14] MEDS: IV NS 1000 ML 1,000 ML IV PRN (05:02)
[2018-10-14 06:00] VITALS: BP 109/52
[2018-10-14 06:04] LABS: CREATININE 0.6 mg/dL (0.6-1.3); PHOSPHOROUS 2.8 mg/dL (2.5-4.9); POTASSIUM 3.8 mmol/L (3.5-5.1)
[2018-10-14 08:00] VITALS: BP 108/55
[2018-10-14] MEDS: OLANZAPINE 2.5 MG TABLET PO SCH (08:32)
[2018-10-14 08:45] VITALS: BP 108/55
[2018-10-14] MEDS: VENLAFAXINE XR 150 MG CAP.SR.24H PO SCH (09:00)
[2018-10-14] MEDS: DOCUSATE SODIUM 100 MG CAPSULE PO SCH (09:00)
[2018-10-14] MEDS: CYANOCOBALAMIN 1000 MCG/ML VIAL IM SCH (09:00)
[2018-10-14 12:00] VITALS: BP 100/50
== END 2018-10-14 14:45 | DRG 640 ==
LOC: TELE 19:36 → MED 10-03 15:31
PROVIDERS: ADMIT Internal Medicine; ATTEND Nurse Practitioner Acute Care
DX: E86.0 Dehydration (principal); G92 Toxic encephalopathy; J18.9 Pneumonia, unspecified organism; N39.0 Urinary tract infection, site not specified; F23 Brief psychotic disorder; R17 Unspecified jaundice; E44.1 Mild protein-calorie malnutrition; J98.11 Atelectasis; R62.7 Adult failure to thrive; Z68.22 Body mass index [BMI] 22.0-22.9, adult; D69.6 Thrombocytopenia, unspecified; E87.6 Hypokalemia; F41.9 Anxiety disorder, unspecified; Z91.19 Patient's noncompliance with other medical treatment and regimen; Z87.440 Personal history of urinary (tract) infections; F50.89 Other specified eating disorder; B96.20 Unspecified Escherichia coli [E. coli] as the cause of diseases classified elsewhere; Z16.12 Extended spectrum beta lactamase (ESBL) resistance; F32.9 Major depressive disorder, single episode, unspecified; R73.9 Hyperglycemia, unspecified; R19.7 Diarrhea, unspecified; G47.00 Insomnia, unspecified; I95.9 Hypotension, unspecified; R13.10 Dysphagia, unspecified; F03.90 Unspecified dementia, unspecified severity, without behavioral disturbance, psychotic disturbance, mood disturbance, and anxiety; I51.7 Cardiomegaly
CPT/HCPCS: 36415; 70450; 71045; 83735; 84100; 84443; 85025; 87040; 87077; 87086; A4663; C1758; G0378; J2185; J2358; J2543; J3420; J3475; J3480; J3490; J7030; J7060